=== PATIENT | male | born 1945 | race Two or more races ===

== ENCOUNTER 2017-05-24 10:20 | Emergency (ER) | payer MEDICARE ==
[2017-05-24 11:23] VITALS: BP 136/56
--- NOTE | 2017-05-24 14:10 | UC ---
UC General HPI - HPI Summary HPI Summary: anticoagulated pt with dm2, nonhealing LE wound and neuropathy p/w c/o fever that started 2 days ago, black stools and rt knee pain. knee feels weak/ unstable with mild to mod pain with wt bearing flexion. no known injury. - History of Current Complaint Chief Complaint: UCGeneralIllness Stated Complaint: FEVER,CHILLS-RIGHT KNEE PAIN-DARK STOOL Time Seen by Provider: 05/24/17 10:42 Hx Obtained From: Patient Onset/Duration: Sudden Onset, Lasting Days - 3, Still Present Timing: Constant Onset Severity: Moderate Current Severity: Moderate Pain Intensity: 0 Associated Signs & Symptoms: Positive: Anticoagulation Therapy, Diaphoresis, Edema - chronic, Fever, Melena, Weakness - rt knee. Negative: Agitation, Abdominal Pain, Confusion, Cough, Chest Pain, Decreased Responsiveness, Dizziness, Diarrhea, Dysuria, Headache, Hematemesis, Nausea, Syncope, SOB, Trauma, Vomiting, Wheezing - Allergy/Home Medications Allergies/Adverse Reactions: Allergies Allergy/AdvReac Type Severity Reaction Status Date / Time Cefdinir Allergy Rash And Verified 05/24/17 10:43 Itching Levofloxacin Allergy Rash And Verified 05/24/17 10:43 Itching Penicillins Allergy Rash And Verified 05/24/17 10:43 Itching Quinolones Allergy Rash And Verified 05/24/17 10:43 Itching Sulfamethoxazole Allergy Rash And Verified 05/24/17 10:43 w/Trimethoprim Itching [From Bactrim] Home Medications: Home Medications Allopurinol TAB* [Zyloprim 100 MG TAB*] 150 mg PO DAILY 05/24/17 [History Confirmed 05/24/17] Apixaban* [Eliquis] 2.5 mg PO BID 05/24/17 [History Confirmed 05/24/17] Ferrous Gluconate TAB* [Fergon TAB*] 325 mg PO BID 05/24/17 [History Confirmed 05/24/17] Furosemide TAB* [Lasix TAB*] 40 mg PO DAILY 05/24/17 [History Confirmed 05/24/17 ] Insulin Glargine [Lantus] 10 - 12 unit SC DAILY 05/24/17 [History Confirmed ] Insulin Regular (Human) [Humulin R U-500 Kwikpen] 0 unit SC TID 05/24/17 [ History Confirmed 05/24/17] Levothyroxine TAB* [Synthroid TAB*] 50 mcg PO DAILY 05/24/17 [History Confirmed 05/24/17] Metolazone TAB* [Zaroxolyn TAB*] 2.5 mg PO SEE INSTRUCTIONS 05/24/17 [History Confirmed 05/24/17] Metoprolol Tartrate TAB* [Lopressor TAB*] 25 mg PO BID 05/24/17 [History Confirmed 05/24/17] Multiple Vitamin [Multivitamins] 1 cap PO DAILY 05/24/17 [History Confirmed ] Omeprazole CAP* [Prilosec CAP* 20 MG] 40 mg PO DAILY 05/24/17 [History Confirmed 05/24/17] Potassium Chlor TAB* [Klor Con ER TAB 10 MEQ*] 20 meq PO DAILY 05/24/17 [ History Confirmed 05/24/17] Simvastatin TAB(NF) [Zocor 20 MG (NF)] 20 mg PO DAILY 05/24/17 [History Confirmed 05/24/17] Terazosin HCl 2 mg PO DAILY 05/24/17 [History Confirmed 05/24/17] PMH/Surg Hx/FS Hx/Imm Hx - Additional Past Medical History Additional PMH: h/o denge fever, pancreatitis,jazzy Endocrine History: Diabetes, Hypothyroidism Cardiovascular History: Cardiac Disease, Atrial Fibrillation, Other - cad, vavular dz Other Cardiovascular History: cad, vavular dz GI/ History: Renal Disease Other GI/ History: ckd stage 4 Cancer History: Other Other Cancer History: kidnet - Surgical History Surgical History: Yes Surgery Procedure, Year, and Place: T&A. nephrectomy - Social History Alcohol Use: None Substance Use Type: None Smoking Status (MU): Former Smoker When Did the Patient Quit Smoking/Using Tobacco: 1968 Review of Systems Constitutional: Fever, Other - sweating Skin: Other - nonhealing ulcers Respiratory: Negative Cardiovascular: Negative Gastrointestinal: Other - black stools Genitourinary: Negative Musculoskeletal: Arthralgia, Edema - rt knee, chronic LE edema Neurological: Negative Psychological: Negative All Other Systems Reviewed And Are Negative: Yes Physical Exam Triage Information Reviewed: Yes Appearance: Well-Appearing, No Pain Distress, Obese Vital Signs: Initial Vital Signs Temp 99.2 F 05/24/17 10:28 Pulse 66 05/24/17 10:28 Resp 20 05/24/17 10:28 BP 139/63 05/24/17 10:28 Pulse Ox 98 05/24/17 10:28 Vital Signs Reviewed: Yes Eyes: Positive: Conjunctiva Clear. Negative: Discharge ENT: Positive: Hearing grossly normal. Negative: Muffled/hoarse voice Neck: Positive: Supple Respiratory: Positive: Lungs clear, Normal breath sounds, No respiratory distress, No accessory muscle use Cardiovascular: Positive: Other: - irreg, irreg Abdomen Description: Positive: Nontender, Soft. Negative: CVA Tenderness (R), CVA Tenderness (L), Distended, Guarding, McBurney's Point Tenderness Bowel Sounds: Positive: Present Musculoskeletal: Positive: Strength Limited @ - rt le, ROM Limited @ - flexion, Other: - squishy lump over medial jopint line of rt knee Neurological: Positive: Alert, Muscle Tone Normal Psychological: Positive: Age Appropriate Behavior Skin: Positive: significant lesion(s) - chronic scaaley, brauny stasis of bl LE , non healing ulcers dressed but leaking serosanguinous fluid Course/Dx - Differential Dx - Multi-Symptom Differential Diagnoses: Other - sepsis, wound infection, hemarthrosis, gi bleed Provider Diagnoses: r/o sepsis, gi bleed and hemarthrosis Discharge - Discharge Plan Condition: Stable Disposition: AGAINST MEDICAL ADVICE Referrals: Mc Mireles MD [Primary Care Provider] -
== END 2017-05-24 11:25 | disposition left against medical advice (07) ==
LOC: UCCORT 10:20
DX: K92.2 Gastrointestinal hemorrhage, unspecified (principal); M25.061 Hemarthrosis, right knee; R50.9 Fever, unspecified; E11.22 Type 2 diabetes mellitus with diabetic chronic kidney disease; N18.4 Chronic kidney disease, stage 4 (severe); Z79.4 Long term (current) use of insulin; E03.9 Hypothyroidism, unspecified; I48.91 Unspecified atrial fibrillation; Z79.01 Long term (current) use of anticoagulants; I25.10 Atherosclerotic heart disease of native coronary artery without angina pectoris; E66.9 Obesity, unspecified; Z88.1 Allergy status to other antibiotic agents; Z88.0 Allergy status to penicillin; Z88.2 Allergy status to sulfonamides; Z87.891 Personal history of nicotine dependence
CPT/HCPCS: 99213; G0463

== ENCOUNTER → 2018-04-19 08:24 | Day surgery (SDC) | payer MEDICARE ==
[~2018-04-19 08:24] MED LIST: Heparin 2 UNITS/ML IVPREMIX* 2,000 ML IV ONE; Iodixanol* (CONTRAST) 320 MG/ML 100 ML SDV ONE; Lidocaine 1% INJ* 10 MG/ML 30 ML SDV ONE; NS 0.9% 1000 ML* 1,000 ML IV SCH
[2018-04-19 14:42] VITALS: BP 127/65
--- NOTE | 2018-04-20 08:22 | CATH ---
CC: Dr. Noah Hare at the [facility] at [facility]; Dr. Buzz Alva at [facility]; Dr. Mc Mireles; Dr. Price Mejia in [place], [place], lithographic photographer. * CARDIAC CATHETERIZATION REPORT: DATE OF PROCEDURE: 04/19/18 - [facility] CATH PRIMARY CARE PHYSICIAN: Dr. Mc Mireles. WORK ORDER DETAILER: Dr. Price Mejia, [place], [place]. INDICATIONS FOR PROCEDURE: The patient is being evaluated for TAVR for significant aortic stenosis, now is to perform coronary arteriography and bypass graft arteriography and limited distal aortoiliac digital subtraction imaging on the patient at request of Dr. Noah Hare. PROCEDURE: Coronary arteriography, vein graft arteriography to the right coronary artery, vein graft arteriography to diagonal branch, HENRY graft arteriography to LAD, distal aortography into iliac arteries under digital substraction technique. The patient was interviewed and examined in the holding area where the risks and benefits were explained. Of note, extra time was taken especially to explain this patient's high risk for deteriorating worsening renal insufficiency and failure and possible need for dialysis given the fact that the patient has a single kidney and has a BUN of 89 and a creatinine of 3.1. He understood the risks and benefits and wished to proceed. Cardiac catheterization laboratory results: Hemoglobin and hematocrit of 11.1 and 35 with a platelet count of 129,000. BUN 89, creatinine 3.1, sodium 137, potassium 3.6, chloride 94, bicarb 33, INR of 1.29. EQUIPMENT UTILIZED: 1. Left femoral artery sheath, a [employer] [place] sheath. 2. Diagnostic coronary catheters an FL4 and an FR4 curve [place] diagnostic catheter. 3. Wire - 175 length J tipped 0.035 wire. 4. HENRY graft catheter, a [place] DHAVAL graft catheter. 5. Graft arteriography of vein graft to right coronary artery and two diagonal branch catheter - right coronary artery diagnostic catheter utilized. 6. Distal aortography into iliac artery. Catheter used - a [place] pigtail catheter. DESCRIPTION OF PROCEDURE: The patient was brought into the cardiovascular laboratory where a formal time-out was performed. Both groins were prepped and draped in a sterile fashion. The left femoral artery was felt to have a better consistent course within the femoral area and was able to be approached better and the area needed to be cannulated and as such the left femoral artery approach was utilized. The patient was anesthetized with 1% lidocaine. Right femoral artery was cannulated with an anterior-only wall stick and a [place] introducer was placed. Coronary arteriography was performed utilizing the diagnostic catheters followed by injection into both vein grafts utilizing the right coronary catheter. Following this, the DHAVAL was injected utilizing the DHAVAL catheter. Following this under digital subtraction, the injection was made into the distal aorta. For the distal aorta injection under digital subtraction a total of 5 cc of contrast was utilized, diluted to a 10 cc volume. The total contrast used for the whole case was 25 cc of Visipaque dye. The radiation exposure included 6.9 minutes of Fluoro time. The air kerma radiation was 533 milligray, the DAP radiation was 10,457 microgray per meter square. RESULTS: CORONARY ARTERIOGRAPHY: A. Left coronary artery. 1. Left main. The left main was noted to have calcification seen within it. There was ostial narrowing of approximately 30%. 2. Left anterior descending artery appeared as a very small caliber vessel and ostial narrowing of 35% to 40% was noted, although calcium was seen around it suggesting the true degree of narrowing was even greater. The LAD supplied a diagonal branch, which had a critical stenosis in a small caliber vessel of about 85% to 90% followed by an 80% lesion. It is unclear whether or not this is the diagonal branch that was bypassed as no competitive flow was seen. 3. Circumflex artery - a nondominant vessel supplying a very thin first and second obtuse marginal branch and a slightly larger bifurcating 3rd obtuse marginal branch. Again, there was diffuse disease in small caliber seen to the nature of this vessel. The ostium of this circumflex had calcium with at least a 50% to 55% obstruction. The diameter of the circumflex in general was less than 1.7 mm. B. Right coronary artery - a dominant vessel supplying the PDA and posterior left ventricular branch. There was mild 30% proximal narrowing seen. There was a proximal to mid lesion of 25% to 30%. Just prior to turning on to the inferior surface of the heart, there was a significant 85% obstruction noted. Past this point, the PDA was noted with an ostial narrowing of 55% to 60 %. The caliber of this PDA itself appeared to be less than 1.7 mm, the continuation of the right coronary artery to the posterior LV branch revealed another area of 65% to 70% narrowing in a vessel that is clearly less than 1.7 mm. VEIN GRAFT ARTERIOGRAPHY RIGHT CORONARY ARTERY: Totally occluded proximally. VEIN GRAFT ARTERIOGRAPHY TO DIAGONAL BRANCH: Widely patent with good anastomosis, with small caliber quileute vessel but no focal critical lesion. HENRY GRAFT LAD: Widely patent with good anastomosis to LAD in small caliber, distal LAD quileute vessel seen. ANGIOGRAPHY OF DISTAL AORTA INTO ILIAC ARTERIES: Both iliac arteries and the femoral arteries appear to have a significant caliber that could be approached for TAVR procedure. OVERALL ASSESSMENT: Diabetic appearing small vessel disease involving the whole left system and distal right system. Multiple moderate to significant lesions seen as described above, the only one of which could be treated percutaneously being the right coronary mid lesion just prior to turning on to the inferior surface of the heart. This information was shared with Dr. Noah Hare, who did review the films himself and will take this under advisement as to how to proceed with respect to the TAVR procedure. [id number]/[facility] #: [id number] KIMI
--- NOTE | 2018-04-20 08:31 | LTR ---
CC: Dr. Mc Mireles, [place], [place]; Buzz Alva MD, [facility]; Dr. Price Mejia, [place], [place] * CARDIOLOGY LETTER: DATE: 04/19/18 To: Noah Hare MD RE: Deonte Tsai : 43 Dear Noah, This letter is just to review the recent outpatient cardiac catheterization I performed on Deonte Tsai for you. As you remember, you requested us to do diagnostic coronary arteriography and graft arteriography and also a limited digital subtraction injection from the lower aorta into the iliacs to look at the approach for putting a TAVR in. As per my discussion on the phone and your reviewing of the films itself, you saw that, in general, his whole left system and even distal vessels of the right system all small in caliber, well under 1.7 mm. He had a totally occluded vein graft to the right coronary artery, but interestingly had an 85% lesion just prior to the [place] right coronary artery turning onto the inferior surface of the heart and a caliber of the artery that was quite acceptable for stent being at least 3.5 mm. This is something I know you will be addressing at the time of TAVR, possibly placing a stent in the right coronary artery. In the meantime, his vein graft to the diagonal branch was widely patent as was his HENRY graft; however, his [place] vessels were small in caliber. With regard to the more pressing issue of his profound renal insufficiency with a creatinine at the time of cath of 3.1 and a BUN of 89, I was able to do the catheterization and only utilize 23 cc of Visipaque contrast. I did hydrate him post catheterization and told him to drink maybe 1 or 2 extra glasses of fluid as I do not want to tip him back over into failure. I did schedule the patient to get a repeat BMP on morning, 04/21/18 to make sure that we did not dramatically alter his renal function; however, I would think with this low an amount of contrast, the likelihood would be we would not get into trouble with worsening his kidneys. A copy of this letter is being sent to his signal tester, Dr. Mejia in [place]. As always, thank you very much for having asked me to participate in his care and if you have any questions, please feel free to speak with me. Sincerely, [id number]/[facility] #: [id number] KIMI
== END | disposition home or self-care (01) ==
LOC: CHICATH 08:24
PROVIDERS: ATTEND Internal Medicine Cardiovascular Disease
DX: I08.3 Combined rheumatic disorders of mitral, aortic and tricuspid valves (principal); I25.10 Atherosclerotic heart disease of native coronary artery without angina pectoris; Z95.1 Presence of aortocoronary bypass graft; E11.9 Type 2 diabetes mellitus without complications; Z79.4 Long term (current) use of insulin; N18.3 Chronic kidney disease, stage 3 (moderate); E03.9 Hypothyroidism, unspecified; I27.20 Pulmonary hypertension, unspecified; M10.9 Gout, unspecified; Z85.528 Personal history of other malignant neoplasm of kidney; Z85.820 Personal history of malignant melanoma of skin; Z90.5 Acquired absence of kidney; I25.2 Old myocardial infarction; I47.1 Supraventricular tachycardia
CPT/HCPCS: 75625; 93455; C1887; J1644